=== PATIENT | male | born 1965 ===

== ENCOUNTER 2018-04-25 09:52 | Emergency (ER) | payer SELFPAY ==
[2018-04-25 09:54] VITALS: TEMP 98
[2018-04-25 09:55] VITALS: BMI 26.6
[2018-04-25] MEDS ORDERED: Oxycodone/Acetaminophen 5/325 mg Tab PO STA (10:18)
[2018-04-25] MEDS ORDERED: Tdap Vaccine 0.5 ml Vial (10-64 yrs) IM ONE ×2 (10:21→10:44)
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
[2018-04-25] MEDS ORDERED: Oxycodone/Acetaminophen 5/325 mg Tab ONE (10:43)
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
[2018-04-25 14:17] VITALS: BP 117/66; PULSE 66; RESP 17
[2018-04-25 14:19] VITALS: O2SAT 96
== END 2018-04-25 14:16 | disposition home or self-care (01) ==
LOC: H.ER 09:52
DX: S40.029A Contusion of unspecified upper arm, initial encounter (principal); S39.012A Strain of muscle, fascia and tendon of lower back, initial encounter; S80.10XA Contusion of unspecified lower leg, initial encounter; V09.00XA Pedestrian injured in nontraffic accident involving unspecified motor vehicles, initial encounter